=== PATIENT | female | born 1970 | race Two or more races ===

== ENCOUNTER 2025-06-12 08:02 | Day surgery (SDC) | payer MEDICARE, MEDICAID ==
[2025-06-12] VITALS (7 sets, daily range): BP systolic 114–155; BP diastolic 74–84; PULSE 56–81; RESP 13–17; O2SAT 96–99
[~2025-06-12] VITALS: Ht 167.6 cm; Wt 106.6 kg
[~2025-06-12 08:02] MED LIST: ALBU108A5 IN; ATOG60TA PO; ATOR-507 PO; DICL1GEL72 EX; FLUT1SPR5; FLUT500M2 INH; HYDR-4798 PO; LAMO200T34 PO; LEVAAER IN; LEVO137T3 PO; LORA-622 PO; MELO15TA29 PO; MULT-1018 PO; NALO1TAB4 PO; NALT1TAB12 PO; NORT25CA GT; ONDA-155 PO; PANT40TA2 PO; SEMA2INJ3 SC; TIZA4CAP PO; TOPI1CAP24 OR
[2025-06-12] MEDS: IODIXANOL 320MG/ML 100ML BTL IV ONE (08:29)
[2025-06-12] MEDS: VERAPAMIL 2.5MG/ML INJ 2ML VIAL IV ONE (08:37)
[2025-06-12] MEDS: SODIUM CHL 0.9% 0 ML ONE (08:37)
[2025-06-12] MEDS: ANGIOMAX 250 MG VIAL IV ONE (08:37)
[2025-06-12] MEDS: LIDOCAINE 2%HCL (LOCAL ANESTH.) INJ 20ML MDV ONE (08:38)
[2025-06-12] MEDS: HEPARIN SODIUM (PORCINE) 5000 UNITS/ML 1ML VIAL ONE (08:38)
[2025-06-12] MEDS: fentaNYL CITRATE 100 MCG/2 ML VL ONE (08:38)
[2025-06-12] MEDS: MIDAZOLAM HCL 2MG/2ML 2ml VIAL (1mg/ml) ONE (08:39)
--- NOTE | 2025-06-12 09:27 | DVHOP2 ---
Operative Report Procedures performed: Left heart catheterization and bilateral coronary angiogram Moderate sedation Diagnosis: No angiographic evidence for epicardial coronary artery disease (normal coronaries) Normal LVEF (60%) with normal EDP Cardiac suggestion for management: Optimized medical therapy Lifestyle and risk factor modifications Findings: LVEF: 60% LVEDP: 10 mm Hg There was no transaortic valve pressure gradient Left main: Left main was coming off the left sinus of Valsalva. It was free of disease. LAD: LAD was coming off the left main. It provided 2 medium-sized diagonals. LAD throughout its course and branches was free of disease. Ramus intermedius: Ramus intermedius was a large caliber vessel which came off the left main. It was free of disease. LCX: LCX was coming off the left main. It provided a small OM1 and LCX itself continued as medium-sized OM2. LCX throughout its course and branches was free of disease. RCA: RCA was coming off the right sinus of Valsalva. It was a dominant vessel and provided RPDA/RPLS. RCA throughout its course and branches was free of disease. Presentation: Patient is a 54-year-old female who presented to the office with dyspnea on exertion occasional chest pains. Past medical history includes hyperlipidemia, ex-smoker, hypertension, hypothyroidism and obesity. Echocardiogram of February 26, 2025 revealed ejection fraction of 60-65%, mild concentric left ventricular hypertrophy, mild biatrial enlargement, mild mitral valvular prolapse, mild MR/TR and right ventricular systolic pressure of less than 35 mm Hg. Nuclear stress test of March 2025 was abnormal and the patient was sent for cardiac catheterization. Procedure: After obtaining informed consent, the patient was brought to the laboratory courier. She was prepped and draped in sterile fashion. Right radial artery was used for access site. 1 mg of Versed and 50 mcg of fentanyl were used for moderate sedation. Using Seldinger technique, the right radial artery was accessed and a 6 Chinese slender sheath was inserted into it. 2.5 mg of verapamil and 100 mcg of nitroglycerin were given as a cocktail into right radial sheath. 5000 units of heparin was given peripherally. Five Chinese tiger 4 diagnostic catheter was used to perform left heart catheterization (obtaining pressures and performing left ventriculography) and bilateral coronary ang iography. There was no indication for any transcatheter revascularization. Total bleeding was less than 5 mL. There was no di ssection/hematoma/perforation. Right radial artery access site was managed by deploying a TR band. Fluoroscopy time: 1.7 minutes contrast: 45 mL of Visipaque. NASRA WOOD MD Jun 12, 2025 09:27
== END 2025-06-12 11:28 | disposition home or self-care (01) ==
LOC: CATH 08:02
PROVIDERS: ATTEND Internal Medicine Cardiovascular Disease
DX: R94.39 Abnormal result of other cardiovascular function study (principal); R06.09 Other forms of dyspnea; R07.9 Chest pain, unspecified; I10 Essential (primary) hypertension; Z87.891 Personal history of nicotine dependence; E66.9 Obesity, unspecified; E78.5 Hyperlipidemia, unspecified; E03.9 Hypothyroidism, unspecified; I51.7 Cardiomegaly; Z79.899 Other long term (current) drug therapy; Z98.890 Other specified postprocedural states
CPT/HCPCS: 93458; C1894; J1644; J2250; J3010; J7030; Q9967; 99152